=== PATIENT | female | born 1960 | race Caucasian/White ===

== ENCOUNTER → 2016-12-30 | Outpatient (CLI) | payer OTHER ==
--- NOTE | ~2016-12-30 | ESTC ---
Cardiac Perfusion Imaging Demographics Patient Name MARTÍN Goncalves Gender Female Patient Number [id number] Race Visit Number [id number] Ethnicity [employer] ID Room Number Accession Number [id number] Height 67 inches Date of 1960 Weight 180 pounds Terreen Interpreting Lacho Date of study 12/30/2016 Physician Savi Supervising /BRETT TREVIZO Technologist Savi Ordering Physician Stress Bekah Mitchell audio technician RDCS, RVT Stress ECG Reading Lacho Nurse Carlo Corrigan RN Physician Savi Procedure Procedure Type: Nuclear Stress Test:Cardiolite Stress Test Procedure Start time: 12/30/2016 08:43 Indications: Exertional Chest Pain and Chest discomfort. Risk Factors The patient risk factors include:former tobacco use and family history of premature CAD. Conclusions Summary Perfusion Images: The overall quality of the study is fair. Left ventricular cavity is noted to be normal on the stress and rest studies. The right ventricle is not visualized and cannot be assessed. Stress SPECT images and Rest SPECT images demonstrate homogenous tracer distribution throughout the myocardium except for a decrease uptake in the area involving the distal anterior wall consistent with soft tissue attenuation. Gated SPECT imaging reveals normal myocardial thickening and wall motion. The left ventricular ejection fraction was calculated to be 67%. Impression ECG portion of stress test is clinically negative for ischemia by diagnostic criteria. Myocardial perfusion imaging is probably normal. The anterior wall matched defect is consistent with soft tissue attenuation. Overall left ventricular systolic function was normal without regional wall motion abnormalities. There are no previous studies for comparison . Stress Protocols Resting ECG Sinus rhythm Pre-stress physical exam: Patient assessed by Dr Lozano prior to testing. Predicted HR: 166 bpm ECG Findings Non specific ST-T wave changes with Regadenoson Arrhythmias No rhythm abnormality. Symptoms None Stress Interpretation ECG portion of stress test is negative for ischemia by diagnostic criteria. Nuclear images are pending Imaging Results Summed scores - Summed stress score: 4 - Summed rest score: 0 - Summed difference score: 4 Stress ejection Ejection fraction:67 % EDV :88 ml ESV :29 ml Stroke volume :59 ml LV mass :123 gr Imaging Protocols Rest Stress Isotope:Tc99m Sestamibi IV Isotope: Tc99m Sestamibi IV Isotope dose:12.2 mCi Isotope dose:35.1 mCi Date:12/30/2016 07:03 Date:12/30/2016 09:08 Technique: SPECT Technique: Gated Supine SPECT Supine Scan Time:45-60 minutes post Scan Time:45-60 minutes post injection injection Procedure Medications - Regadenoson (Lexiscan) 0.4 mg IV over 10-15 sec. I.V. . Medical History Admission Data Admission date: 12/30/2016 Admission Time: 06:47 Hospital Status: Outpatient. Signatures dtt: SAVI LOZANO dtd: 12/30/16 0843 Physician Self Edit
--- NOTE | ~2016-12-30 | ECHO ---
Transthoracic Echocardiography Report (TTE) Demographics Patient Name ADRIÁN RESENDIZ Date of Study 12/30/2016 Patient Number [id number] Visit Number [id number] Date of 1960 Room Number Gender Female Number Age 56 year(s) Referring Abilio Mcdonald Acid Correction Hand Johnnie Sweeney Physician Lacho Green RDCS, RVT Physician Interpreting Lacho [facility] Coordinator Physician Supervising Ordering Lacho Hou MD/MLP Physician Nurse Stress Community Engagement Representative Conclusions Contractility Score Summary Normal Left Ventricular contractility was noted. Summary The estimated left ventricular ejection fraction is 60%. Procedure Type of Study TTE procedure:2D Echocardiogram, M-Mode, Doppler , Color Doppler. Procedure Date Date: 12/30/2016 Start: 11:38 AM Study Location: Echo Lab Technical Quality: Good visualization Indications:Palpitations. Appropriate Use Criteria: 9 Patient Status: Routine HR: 68 bpm BP: 130/68 mmHg M-Mode/2D Measurements LV Diastolic Dimension: 4.81 cm LV Systolic Dimension: 3.12 cm LV Septum Diastolic: 0.87 cm LV PW Diastolic: 0.79 cm AO Root Dimension: 2.4 cm Cardiac Output: 4.18 l/min LA Dimension: 3.2 cm EF Estimated: 60 % LVOT: 2 cm LVOT VTI: 19.6 cm RV Base: 2.53 cm LV Stroke volume: 61.54 ml RV Length: 7.12 cm TAPSE: 2.32 cm TDI-S': 12.6 cm/s Doppler Measurements AV Peak Velocity: 1.11 m/s MV Peak E-Wave: 0.73 m/s AV Peak Gradient: 4.93 mmHg MV Peak A-Wave: 0.97 m/s AV Mean Gradient: 3 mmHg MV E/A Ratio: 0.75 LVOT Peak Velocity: 0.84 m/s MV P1/2t: 45 msec TR Gradient:24.4 mmHg PV Peak Velocity: 0.8 m/s Estimated RAP:3 mmHg PV Peak Gradient: 2.59 mmHg Estimated RVSP: 27 mmHg Estimated PASP: 27.4 mmHg E' Septal Velocity: 0.09 m/s A' Septal Velocity: 0.1 m/s E' Lateral Velocity: 0.13 m/s A' Lateral Velocity: 0.07 m/s Findings Left Ventricle The left ventricle is normal in size . Right Ventricle Normal right ventricle structure and function. Left Atrium Normal left atrial size. Right Atrium Normal right atrial size. IVC measures 1.71 cm with inspiratory collapse. Mitral Valve Mild mitral regurgitation by color Doppler. Aortic Valve The aortic valve is mildly sclerotic. Tricuspid Valve Trivial tricuspid regurgitation by color Doppler. with estimated RVSP of 27 mm hg Pulmonic Valve Normal pulmonic valve structure and function. Pericardial Effusion No evidence of pericardial effusion. Miscellaneous Visualized portions of the aortic root and ascending aorta appear normal in size. Pleural Effusion No evidence of pleural effusion. Contractility Score LV regional wall motion:(0-Non visualized 1-Normal 2-Hypokinesis 3-Akinesis 4-Dyskinesis 5-Aneurysm) Signature dtt: ANDREW LOZANO dtd: 12/30/16 1138 Physician Self Edit
== END | disposition disaster alternative care site (69) ==
LOC: GRAD 06:47
DX: R42 Dizziness and giddiness (principal); R00.2 Palpitations; R07.9 Chest pain, unspecified
CPT/HCPCS: A9500; J2785